=== PATIENT | female | born 2000 | race Two or more races ===

== ENCOUNTER 2018-06-10 16:07 | Emergency (ER) | payer MEDICAID ==
[~2018-06-10] VITALS: Ht 160 cm; Wt 88.5 kg
--- NOTE | 2018-06-10 16:50 | NUR ---
Patient discharged to home in stable conditon. Written and verbal after care instructions given to patient. Patient verbalizes understanding of instructions.
== END 2018-06-10 16:51 | disposition home or self-care (01) ==
LOC: ER 16:11
DX: J40 Bronchitis, not specified as acute or chronic (principal); Z90.49 Acquired absence of other specified parts of digestive tract
CPT/HCPCS: 99283; A4663